=== PATIENT | female | born 1965 | race Caucasian/White ===

== ENCOUNTER → 2023-05-07 14:38 | Outpatient (REF) | payer BC, SELFPAY | LOC: WDC 14:38 | PROVIDERS: ATTENDING PHYSICIAN Nurse Practitioner Women's Health; FAMILY PHYSICIAN Nurse Practitioner Adult Health | DX: Z12.31 Encounter for screening mammogram for malignant neoplasm of breast (principal); N64.4 Mastodynia | CPT/HCPCS: 76642; 77062; 77066 ==

== ENCOUNTER → 2023-10-15 10:14 | Outpatient (REF) | payer BC, SELFPAY ==
[2023-10-15 12:59] LABS: Vitamin B12 533 pg/ml (239-931)
== END ==
LOC: HWLAB 10:14
PROVIDERS: ATTENDING PHYSICIAN Nurse Practitioner Family
DX: K14.6 Glossodynia (principal)
CPT/HCPCS: 36415; 82607

== ENCOUNTER 2024-03-17 06:24 | Day surgery (SDC) | payer BC, SELFPAY | END 2024-03-17 09:44 | disposition home or self-care (01) | LOC: GI 06:24 | PROVIDERS: ATTENDING PHYSICIAN Internal Medicine | DX: Z12.11 Encounter for screening for malignant neoplasm of colon (principal); K57.30 Diverticulosis of large intestine without perforation or abscess without bleeding; D12.4 Benign neoplasm of descending colon; R12 Heartburn; K44.9 Diaphragmatic hernia without obstruction or gangrene; Z80.0 Family history of malignant neoplasm of digestive organs | CPT/HCPCS: 45385; 43235; 88305 ==

== ENCOUNTER → 2024-05-12 10:41 | Outpatient (REF) | payer BC, SELFPAY | LOC: HWWDC 10:41 | PROVIDERS: ATTENDING PHYSICIAN Nurse Practitioner Women's Health; FAMILY PHYSICIAN Nurse Practitioner Adult Health | DX: Z12.31 Encounter for screening mammogram for malignant neoplasm of breast (principal) | CPT/HCPCS: 77063; 77067 ==

== ENCOUNTER → 2024-09-08 11:49 | Outpatient (REF) | payer BC, SELFPAY ==
[2024-09-08 14:33] LABS: Urine Character Clear (Clear)
[2024-09-08 14:40] LABS: Urine Squamous Cell 16-20 /LPF (Few); Urine White Cell 0-2 /HPF (0-5)
[2024-09-08 14:44] LABS: ALT (SGPT) 20 U/L (0-35); AST (SGOT) 24 U/L (14-36); Albumin 4.0 g/dl (3.5-5.0); Alkaline Phosphatase 61 U/L (38-126); Blood Urea Nitrogen 16 mg/dl (7-17); Calcium 9.2 mg/dl (8.4-10.2); Carbon Dioxide 25 mmol/L (22-30); Chloride 108 mmol/L (98-107); Glucose 94 mg/dl (70-99); HDL Cholesterol 62 mg/dl; LDL Cholesterol, Calculated 134 mg/dl; Potassium 4.2 mmol/L (3.5-5.1); Sodium 139 mmol/L (135-145); Total Protein 6.8 g/dl (6.3-8.2); Very Low Density Lipoprotein 15 mg/dl (0-30); eGFR > 60.00
[2024-09-08 14:58] LABS: Hematocrit 38.6 % (37.0-47.0); Hemoglobin 12.9 g/dL (12.0-16.0); Mean Corp Hgb Conc. 33.4 g/dL (33.0-37.0); Mean Corpuscular Volume 91.9 fL (81.0-99.0); Nucleated Red Blood Cells % 0 %; Platelet Count 238 10^3/uL (130-400); Red Cell Dist. Width 12.3 % (11.5-14.5)
[2024-09-09 09:06] LABS: Glycohemoglobin (HgbA1c) 5.7 % (4.0-5.6)
== END ==
LOC: HWLAB 11:49
PROVIDERS: ATTENDING PHYSICIAN Nurse Practitioner Adult Health
DX: Z00.01 Encounter for general adult medical examination with abnormal findings (principal); R73.03 Prediabetes
CPT/HCPCS: 36415; 80053; 80061; 81003; 81015; 83036; 84443; 85025; 86765